=== PATIENT | female | born 1970 | race Caucasian/White ===

== ENCOUNTER → 2021-07-10 | Outpatient (CLI) | payer OTHER ==
--- NOTE | 2021-07-10 13:07 | US ---
EXAMINATION TYPE: US thyroid st tissue head/neck DATE OF EXAM: 07/10/2021 COMPARISON: NONE CLINICAL HISTORY: R22.1 Soft tissue mass. Patient has two submandibular palpable areas on left. 1.) 0.9 x 0.4 x 0.7cm 2.) 0.7 x 0.4 x 0.7cm IMPRESSION: 1. Small hypoechoic areas at the palpable region in the submental space. Findings may be small lymph nodes. These are not enlarged by measurement criteria. Consider clinical management. 2. If additional evaluation would be of benefit, CT neck with contrast could be performed for additio nal evaluation.
== END | disposition home or self-care (01) ==
LOC: RADUSWWP 11:56
PROVIDERS: ATTEND Family Medicine
DX: R22.1 Localized swelling, mass and lump, neck (principal)
CPT/HCPCS: 76536

== ENCOUNTER → 2021-07-24 | Outpatient (CLI) | payer SELFPAY ==
--- NOTE | 2021-07-24 12:39 | CT ---
EXAMINATION TYPE: CT soft tissue neck w con DATE OF EXAM: 07/24/2021 12:23 PM COMPARISON: Ultrasound 07/10/2021 HISTORY: pain and swelling to left side of neck CT DLP: 344.9 mGycm Automated exposure control for dose reduction was used. CONTRAST: CT scan of the neck is performed following with IV Contrast, patient injected with 80cc mL of Isovue 300. Axial images are obtained, coronal and sagittal reformatted images are reviewed. FINDINGS: Subcentimeter left-sided thyroid nodule noted too small to characterize. Submandibular glan ds are symmetric in size and appearance. Parotid glands have a normal appearance. Oropharynx and nasopharynx symmetric. Orbits symmetric. Base of the tongue symmetric. Vocal cords hav e a normal appearance. Lung apices are clear. Osseous structures are intact. Mild atherosclerotic change of the carotid bifu rcation. Shotty lymphadenopathy seen throughout the subcutaneous tissue compartments of the neck and no defini te pathologic lymphadenopathy. IMPRESSION: 1. No definite mass or pathologic adenopathy.
== END | disposition home or self-care (01) ==
LOC: RADCTMAIN 11:22
PROVIDERS: ATTEND Family Medicine
DX: R22.1 Localized swelling, mass and lump, neck (principal)
CPT/HCPCS: 82565; 84520; 70491; 36415; Q9967

== ENCOUNTER → 2022-01-03 | Outpatient (CLI) | payer OTHER ==
--- NOTE | 2022-01-07 07:48 | MM ---
Reason for Exam: Screening (asymptomatic). Last mammogram was performed 1 year(s) and 4 month(s) ago. Patient History: Menarche at age 9. Patient has no children. Hysterectomy at age 45. Postmenopausal. Maternal aunt had breast cancer. Paternal aunt had endometrial cancer. Risk Values: Siobhan 5 year model risk: 1.2%. NCI Lifetime model risk: 10.6%. Prior Study Comparison: 08/24/2020 Bilateral MG 3D screening mammo w/cad, [facility] – [place]. Tissue Density: There are scattered fibroglandular densities. Findings: Analyzed By CAD. There is no suspicious group of microcalcifications or new suspicious mass in either breast. No significant change from prior examination. Overall Assessment: Benign, BI-RAD 2 Management: Screening Mammogram of both breasts in 1 year. A clinical breast exam by your physician is recommended on an annual basis and results should be correlated with mammographic findings. Electronically signed and approved by: Philip Kim D.O.
== END | disposition home or self-care (01) ==
LOC: RADMAMWWP 16:36
PROVIDERS: ATTEND Family Medicine
DX: Z12.31 Encounter for screening mammogram for malignant neoplasm of breast (principal); Z78.0 Asymptomatic menopausal state; Z80.3 Family history of malignant neoplasm of breast
CPT/HCPCS: 77063; 77067

== ENCOUNTER → 2023-02-19 | Outpatient (CLI) | payer OTHER ==
--- NOTE | 2023-02-20 11:32 | MM ---
Reason for Exam: Screening (asymptomatic). Last mammogram was performed 1 year(s) and 1 month(s) ago. Patient History: Menarche at age 9. Patient has no children. Hysterectomy at age 45. Postmenopausal. Maternal aunt had breast cancer. Paternal aunt had endometrial cancer. Risk Values: Siobhan 5 year model risk: 1.3%. NCI Lifetime model risk: 10.5%. Prior Study Comparison: 08/24/2020 Bilateral MG 3D screening mammo w/cad, [facility]. 01/03/2022 Bilateral MG 3D screening mammo w/cad, [facility]. Tissue Density: The breast tissue is heterogeneously dense. This may lower the sensitivity of mammography. Findings: Analyzed By CAD. There is no suspicious group of microcalcifications or new suspicious mass in either breast. Overall Assessment: Negative, BI-RAD 1 Management: Screening Mammogram of both breasts in 1 year. . Patient should continue monthly self-breast exams. A clinical breast exam by your physician is recommended on an annual basis. This exam should not preclude additional follow-up of suspicious palpable abnormalities. Note on Siobhan scores and lifetime risk: 1. A Siobhan score greater than 3% is considered moderate risk. If this is the case, consider specialist referral to assess eligibility for a risk reducing agent. 2. If overall lifetime risk for the development of breast cancer is 20% or higher, the patient may qualify for future screening with alternating mammogram and breast MRI. Electronically signed and approved by: Anurag Cordova M.D. Radiologis
== END | disposition home or self-care (01) ==
LOC: RADMAMWWP 16:19
PROVIDERS: ATTEND Family Medicine
DX: Z12.31 Encounter for screening mammogram for malignant neoplasm of breast (principal); Z78.0 Asymptomatic menopausal state; Z80.3 Family history of malignant neoplasm of breast
CPT/HCPCS: 77063; 77067

== ENCOUNTER → 2023-09-08 | Outpatient (CLI) | payer OTHER ==
[2023-09-08 15:18] LABS: Partial Thromboplastin Time 24.9 sec (22.0-30.0); Prothrombin Time 10.6 sec (10.0-12.5)
[2023-09-08 21:22] LABS: HCT 41.6 % (37.2-46.3); HGB 13.3 g/dL (12.0-15.0); MCH 28.5 pg (27.0-32.0); MCV 89.3 FL (80.0-97.0); Mean Platelet Volume 10.3 FL (9.5-12.2); NRBC Per 100 WBC 0 X 10*3/uL (0.00-0.01); Platelet Count 203 X 10*3/uL (140-440); RBC 4.66 X 10*6/uL (4.10-5.20); RDW 13.8 % (11.5-14.5); WBC 5.24 X 10*3/uL (4.50-10.00)
[2023-09-08 21:46] LABS: ALT 27 U/L (8-44); AST 35 U/L (13-35); Albumin/Globulin Ratio 1.67 Ratio (1.60-3.17); Alkaline Phosphatase 97 U/L (41-126); BUN/Creat Ratio 16.47 Ratio (12.00-20.00); Blood Urea Nitrogen 31.3 mg/dL (9.0-27.0); Calcium 9.1 mg/dL (8.7-10.3); Carbon Dioxide 18.9 mmol/L (21.6-31.8); Chloride 106 mmol/L (96-109); Globulin 2.4 g/dL (1.6-3.3); Glucose 96 mg/dL (70-110); Potassium 5.1 mmol/L (3.5-5.5); Sodium 138 mmol/L (135-145); Total Bilirubin 0.2 mg/dL (0.3-1.2); Total Protein 6.4 g/dL (6.2-8.2)
== END | disposition home or self-care (01) ==
LOC: LABPAT 13:47
PROVIDERS: ATTEND Orthopaedic Surgery
DX: Z01.812 Encounter for preprocedural laboratory examination (principal)
CPT/HCPCS: 36415; 80053; 85027; 85610; 85730; 87070

== ENCOUNTER 2023-09-22 05:56 | Day surgery (SDC) | payer OTHER ==
[~2023-09-22 05:56] MED LIST: MELOXICAM 7.5 MG TAB PO PRN; TRANEXAMIC 1,000 MG/100ML-NACL 1,000 MG in SALINE 1 100ML.BAG IVPB PRN
[2023-09-22] MEDS: GABAPENTIN 300 MG CAP PO PRN (06:37)
[2023-09-22] MEDS: ACETAMINOPHEN TAB 500 MG TAB PO PRN (06:38)
[2023-09-22] MEDS: IV FLUID CONTINUATION 1,000 ML IV ONE ×2 (06:54→07:03)
[2023-09-22] MEDS: ONDANSETRON 4 MG/2 ML VIAL IVP ONE (06:57)
[2023-09-22 07:00] LABS: Glucose,Whole Blood 103 mg/dL (70-110)
[2023-09-22] MEDS: MIDAZOLAM 2 MG/2 ML VIAL IVP ONE (07:02)
--- NOTE | 2023-09-22 08:35 | P.OP ---
Date of Procedure: 09/22/23 Preoperative Diagnosis: Severe osteoarthritis right knee Postoperative Diagnosis: Severe osteoarthritis right knee Procedure(s) Performed: Right total knee arthroplasty Implants: Epters & Nephew Journey II CR Oxinium cruciate retaining femoral component size 5, right Peters & Nephew Journey nonporous tibial baseplate size 3, right Peters & Nephew Journey II, XLPE Deep Dished articular insert, size 9 mm, Size 3- 4, right Peters & Nephew Journey Reva II resurfacing patellar component, oval, 29 mm All components were cemented using Palacos R bone cement The articulation is Oxinium on polyethylene Anesthesia: JAMMIE Surgeon: John Mcdonald Epic Manager #1: Jeanette Gooden Estimated Blood Loss (ml): 40 Pathology: none sent Condition: stable Disposition: PACU Indications for Procedure: The patient's knee is end-stage, and conservative management has failed. The operation of knee replacement has been discussed at length in the office, as well as potential risks and complications. These are inclusive of, but not l imited to: Infection, bleeding, scarring, discomfort, stiffness, blood vessel and nerve damage, need for further surgery, failure to relieve symptoms, persistence, recurrence, or worsening of problems, loosening, dislocation, wear, blood clot, pulmonary embolism, , gait dysfunction, stiffness, and other risks as discussed in the office. Patient elects to proceed and the consent form has been signed. Operative Findings: The operative findings are consistent with severe osteoarthritis of the right knee Description of Procedure: The patient was seen in the preoperative area, the consent was reviewed and the operative site was marked with a skin marker. The patient verified the procedure and the operative site. An adductor canal pain catheter and an iPACK block were placed by anesthesia in the preoperative area. The patient was then brought to the operating room and positioned on the operating room table in the supine position. Preoperative antibiotics and a gram of tranexamic acid were given intravenously. A general anesthetic was administered by the anesthesia department. Care was taken to make sure that all pressure points were adequately padded. A tourniquet was placed on the upper thigh and the lower extremity was prepped with ChloraPrep and draped in usual sterile fashion. A universal time-out was then performed which confirmed the patient's name, surgical site, ALLERGIES, and consent. The lower extremity was then exsanguinated and tourniquet was inflated to 250 mmHg. A standard anterior midline approach to the knee was performed. The skin and subcutaneous tissue were sharply dissected down to the patellar tendon. A medial parapatellar arthrotomy was then performed. The knee was then extended, the patellar was everted, and the knee was flexed. The infra-patellar fat pad was removed in order to enhance exposure. The anterior horns of both menisci were excised, and a release was performed to the posterior medial aspect of the knee. On gross visual inspection, there was complete loss of articular cartilage in the medial and patellofemoral joint spaces. There was also significant cartilage damage in the lateral compartment. There were multiple periarticular osteophytes globally about the knee which were then removed with a Ronguer. The femoral canal was then opened with the 9.5 mm intramedullary drill. The 8 mm intramedullary yina was then inserted into the femoral canal with the distal femoral cutting guide set for 5 of valgus. The distal femoral cutting block was then pinned in place. The intramedullary yina was then removed, and the distal femur was then cut. The cutting block was then removed and the cut was checked for symmetry. The resected bone was then measured to confirm the appropriate distal femoral resection. Next, the sizing guide was then placed and set for 3 external rotation based off of the epicondylar axis and Accomack's line. Pins were then placed and the drill holes, and the femur was sized with the sizing stylus. The pins were then removed, and the sizing guide was then removed. The spikes of the appropriate size femoral block was then placed into the predrilled holes, and malleted into place. Two 45 mm pins were then placed into the fixation holes on the cutting block. An warren wing was then used to ensure there would be no notching with the anterior cut. The anterior condyles were cut without notching. The anterior chord cut was then performed, followed by the posterior cut, posterior chamfer cut, and the anterior chamfer cut. The collateral ligaments were protected during the entire process. The cutting block was then removed. Any remaining bone and osteophytes were removed from the femur with a Ronguer. Attention was then directed to the tibia. The remaining ACL was removed with a Ronguer, and the tibia was then gently subluxed forward with a large bent knee retractor. Any remaining menisci were excised. The posterior lateral corner was cauterized in order to coagulate the lateral geniculate artery. The extra medullary tibial cutting guide was then placed, set for the appropriate rotation, slope, and depth of resection. The proximal tibia cutting guide was then pinned in place. Proximal tibia was then cut and sized. A curved osteotome was then used to remove any posterior osteophytes from the distal femur. The femoral trial was placed. A narrow saw blade was then used to remove the anterior intracondylar femoral bone. The CR notch trial was then placed. The tibial trial was placed with the appropriate-sized insert. The knee was able to fully extend and flex to 130 and was stable throughout all range of motion. The knee was then extended and the patella was everted. Patella was then measured, and then using an osteotomy guide, the patella was cut at the appropriate level. The patellar component was sized. The patellar drill guide was placed and the patella was drilled. The patella trial was then placed. The knee was then taken through range of motion with the patella trial and the patella tracked normally using the no thumbs technique. The patella trial was then removed. The knee was then flexed and lug holes were drilled through the femoral trial and the femoral trial was then removed. The tibial was then re- exposed, and the tibial broach guide was then pinned in place after it was set for the appropriate rotation to allow for the most coverage without overhang. The tibia was then reamed and broached. The femoral canal was plugged with autologous bone. The cut surfaces of bone were then irrigated with pulsatile lavage. The knee was also irrigated with Irrisept solution. The components were then opened, the cement was mixed. Cement was placed on the backside of the femoral, tibial, and patellar components. Cement was then applied to the tibial surface and pressurized into the surface using finger pressurization technique. The tibial component was then applied and excess cement was removed after it was impacted securely noted to be flush with the cut surface. In similar fashion, the cement was applied to the cut femoral surface, p ressurized and using finger pressurization the component was impacted in place. Excess cement was removed. The polyethylene spacer was then implanted and locked into position. Patellar component was then applied in a similar technique and the patellar clamp was used to hold patella in place while the cement hardened. The knee was held in full extension while the cement hardened. Once the cement had fully hardened, the knee was reinspected. Any other cement extrusion was removed the final range of motion testing showed range of motion from 0-130 with excellent stability, both medial and laterally and appropriate alignment of the leg. Patella tracked normally. After the cemented hardened, the tourniquet was released and hemostasis was obtained. A second gram of transexamic acid was given intravenously. The knee was again irrigated. The knee was again taken through range of motion and found to be stable throughout all range of motion of 0-130, and the patella tracked normally. The fascia was then closed with 0 Vicryl followed by #2 strata fix suture. The subcutaneous tissue was closed with 3-0 Vicryl and 3-0 strata fix. Exofin glue was used for the skin and placed with the knee in flexion. After the glue had dried, and Optafoam silver impregnated dressing was applied. A lightly compressive dressing was applied using web roll and Pro wrap. Patient was then transferred to the stretcher and taken to recovery room in stable condition. Sponge and needle counts were correct. The medical receptionist assistant DAVID Bauer was required due the complexity surgery and the need for a skilled surgical elastic knitter hand frame. She assisted in positioning, draping, retraction, and closure of the wound.
[2023-09-22] MEDS: LACTATED RINGERS 1,000 ML IV ONE (08:50)
[2023-09-22] MEDS: ROPIVACAINE 1,100 MG, SODIUM CHLORIDE 0.9% 500 ML 330 ML, EMPTY PAIN BALL 1 EACH MISCELLANE PRN (09:25)
[2023-09-22] MEDS ORDERED: NALOXONE 0.4 MG/ML 1 ML VIAL IV PRN (09:49)
[2023-09-22] MEDS ORDERED: MAGNESIUM HYDROXIDE 2,400 MG/30 ML CUP PO PRN (09:49)
[2023-09-22] MEDS ORDERED: NA PHOS,M-B/NA PHOS,DI-BA 133 ML ENEMA RECTAL PRN (09:49)
[2023-09-22] MEDS ORDERED: bisacodyL 10 MG SUPP RECTAL PRN (09:49)
[2023-09-22] MEDS ORDERED: ONDANSETRON 4 MG/2 ML VIAL IVP PRN (09:49)
[2023-09-22] MEDS ORDERED: HYDROmorphone 0.5 MG/0.5 ML SYRINGE IVP PRN ×2 (09:49)
[2023-09-22] MEDS ORDERED: HYDROcodone/APAP 7.5-325MG 1 EACH TAB PO PRN (09:52)
[2023-09-22 10:00] LABS: Glucose,Whole Blood 151 mg/dL (70-110)
--- NOTE | 2023-09-22 10:06 | XR ---
EXAMINATION TYPE: XR knee 2 views RT DATE OF EXAM: 09/22/2023 Comparison: None Clinical History: 53-year-old female POST TOTAL KNEE ARTHROPLASTY Findings: Images show placement of right total knee arthroplasty. Both distal femoral and proximal tibial compo nents of the prosthesis are well seated without periprosthetic fracture. Alignment grossly anatomic. Anterior soft tissue swelling with soft tissue air as well as intra-articular air related to recent o peration. Vascular calcifications noted in the mid to distal thigh. Impression: Uncomplicated postoperative appearance right total knee arthroplasty.
[2023-09-22] MEDS: HYDROmorphone 0.5 MG/0.5 ML SYRINGE IVP PRN (10:23)
[2023-09-22] MEDS: droPERidol 5 MG/2 ML VIAL IVP ONE (15:26)
[2023-09-22] MEDS: LACTATED RINGERS 1,000 ML IV SCH (15:26)
[2023-09-22] MEDS: SODIUM CHLORIDE 0.9% 1,000 ML IV SCH (16:02)
[2023-09-22 16:43] LABS: Glucose,Whole Blood 229 mg/dL (70-110)
[2023-09-22] MEDS ORDERED: LORazepam 0.5 MG TAB PO PRN (17:15)
[2023-09-22] MEDS ORDERED: DEXTROSE 50% SYRINGE 50 ML IVP PRN ×2 (17:16)
--- NOTE | 2023-09-22 17:19 | P.CONS ---
History of Present Illness - Reason for Consult Consult date: 09/22/23 - History of Present Illness 53 year old F with PMH of CAD with stent, h/o gastric bypass, h/o bleeding gastric ulcer, anxiety presents to [facility] for elective surgery. She underwent right total knee arthroplasty with Dr. Mcdonald. [facility] [place] Physicians consulted for medical management of this patient. She reports 4/10 pain in her R knee. Ambulating since surgery. Able to urinate. No bowel movement. Not passing gas. No other complaints. Vital signs BP 135/80, HR 74, T 98.5F, RR 18, 100% on RA. POC glucose 103-229 since admission. Knee XR shows post operative changes right total knee arthroplasty. General: no distress, appears at stated age Derm: warm, dry Head: atraumatic, normocephalic, symmetric Eyes: EOMI, no lid lag, anicteric sclera Mouth: no lip lesion, mucus membranes moist Cardiovascular: S1S2 reg, no murmur Lungs: CTA BS bilateral, no rhonchi, no rales , no accessory muscle use Ext: no gross muscle atrophy, no edema, no contractures Neuro: no focal neuro deficits Psych: Alert and oriented x 3 POD 0 R total knee arthroplasty managed by Orthopedic surgery. CAD with stent: ASA 81 mg PO BID. Plavix 75 mg PO QD. Metoprolol 25 mg PO QD. h/o bleeding gastric ulcer: Protonix 40 mg PO QD. Diabetes mellitus: ISS. Accuchecks ACHS. Hypoglycemic precautions. Anxiety: Sertraline 150 mg PO QHS. Ativan 0.5 mg PO BID PRN. h/o gastric bypass CODE STATUS: FULL CODE DVT Prophylaxis: ASA BID GI Prophylaxis: Designated medical POA if patient is not able to make medical decisions for themselves: I have reviewed the following testing consultant notes: Surgical note. I have reviewed the results of the following tests: As above. I have ordered the following tests: As above. I have discussed the care of this patient with the following independent historian: Family members. I have independently interpreted the following test below: I have discussed the management of this patient with the following physician: Past Medical History Past Medical History: Coronary Artery Disease (CAD), Diabetes Mellitus, GERD/Reflux, GI Bleed, Osteoarthritis (OA) Additional Past Medical History / Comment(s): BLEEDING ULCERS,KIDNEY STONES History of Any Multi-Drug Resistant Organisms: None Reported Past Surgical History: Bariatric Surgery, Cholecystectomy, Heart Catheterization, Heart Catheterization With Stent, Hysterectomy, Orthopedic Surgery, Tonsillectomy Additional Past Surgical History / Comment(s): CARDIAC STENT,KNEE SURGERY,BYPASS GASTRIC Past Anesthesia/Blood Transfusion Reactions: No Reported Reaction Additional Past Anesthesia/Blood Transfusion Reaction / Comm: no hx. of blood transfusion reaction Date of Last Stent Placement:: 01/11 Past Psychological History: Anxiety, Depression Smoking Status: Never smoker Past Alcohol Use History: None Reported Past Drug Use History: Marijuana Additional Drug Use History / Comment(s): THC gummies very rarely - Past Family History Mother Family Medical History: No Reported History Medications and Allergies Home Medications Medication Instructions Recorded Confirmed Type Aspirin [Adult Low Dose Aspirin EC] 81 mg PO DAILY 05/03/21 09/22/23 History Clopidogrel [Plavix] 75 mg PO DAILY 05/03/21 09/18/23 History LORazepam 0.5 mg PO BID PRN 05/03/21 09/18/23 History Metoprolol Succinate [Toprol XL] 25 mg PO DAILY 05/03/21 09/18/23 History Nitroglycerin Sl Tabs [Nitrostat] 0.4 mg SUBLINGUAL ONCE PRN 05/03/21 09/18/23 History Ondansetron [Zofran] 4 mg PO Q8HR PRN 05/03/21 09/22/23 History Sertraline HCl 150 mg PO HS 05/03/21 09/18/23 History Cholestyramine (with Sugar) 4 gm PO BID PRN 09/18/23 09/22/23 History [Questran] Cyclobenzaprine [Flexeril] 5 mg PO Q8H PRN 09/18/23 09/22/23 History Dulaglutide [Trulicity] 3 mg SQ SA 09/18/23 09/18/23 History Ipratropium Hope [Ipratropium 1 spray NASAL DAILY 09/18/23 09/22/23 History Hope 0.03%] Loratadine [Claritin] 10 mg PO DAILY 09/18/23 09/22/23 History Multivitamins, Thera [Multivitamin 1 tab PO DAILY 09/18/23 09/22/23 History (formulary)] Pantoprazole [Protonix] 40 mg PO DAILY 09/18/23 09/22/23 History traMADol HCL 50 mg PO Q6H PRN 09/18/23 09/18/23 History Aspirin [Adult Low Dose Aspirin EC] 81 mg PO BID 30 Days #60 tab 09/22/23 Rx HYDROcodone/APAP 7.5-325MG [[place] 1 - 2 tab PO Q6H PRN #32 tab 09/22/23 Rx 7.5-325] Sennosides [Senokot] 2 tab PO DAILY PRN #60 tablet 09/22/23 Rx Allergies Allergy/AdvReac Type Severity Reaction Status Date / Time cefaclor [From Ceclor] Allergy Rash/Hives Verified 09/22/23 06:18 pioglitazone [From Actos] Allergy Rash/Hives Verified 09/22/23 06:18 rosiglitazone [From Avandia] Allergy Rash/Hives Verified 09/22/23 06:18 tirzepatide [From Mounjaro] Allergy Rash/Hives Verified 09/22/23 06:18 Physical Exam Vitals: Vital Signs Temp Pulse Resp BP Pulse Ox 09/22/23 15:33 98.5 F 74 18 135/80 100 09/22/23 14:45 70 16 153/75 96 09/22/23 14:15 68 18 131/82 98 09/22/23 13:45 68 17 135/82 100 09/22/23 13:15 68 17 169/74 100 09/22/23 12:45 83 16 135/77 100 09/22/23 12:15 65 16 113/58 98 09/22/23 11:45 65 16 111/58 98 09/22/23 11:15 63 15 117/59 98 09/22/23 10:45 62 17 125/68 100 09/22/23 10:15 75 15 124/66 97 09/22/23 09:47 66 16 121/67 98 09/22/23 09:32 67 14 130/67 99 09/22/23 09:17 67 15 137/64 97 09/22/23 09:02 96.8 F L 79 14 176/70 100 09/22/23 06:23 97.2 F L 78 18 114/74 100 Intake and Output 09/22/23 09/22/23 09/22/23 06:59 14:59 22:59 Intake Total 300 1450 Output Total 640 Balance 300 810 Intake: IV 300 1450 Output: Urine 600 Estimated Blood Loss 40 Other: # Voids 1 Weight 87.9 kg 87.9 kg Results Labs: Abnormal Lab Results - Last 24 Hours (Table) 09/22/23 09/22/23 Range/Units 09:59 16:41 POC Glucose (mg/dL) 151 H 229 H (70-110) mg/dL
[2023-09-22] MEDS: INSULIN ASPART (NovoLOG) 100 UNIT/ML VIAL SQ SCH (17:33)
[2023-09-22 21:06] LABS: Glucose,Whole Blood 210 mg/dL (70-110)
[2023-09-22] MEDS: ASPIRIN 81 MG PO SCH (21:21)
[2023-09-22] MEDS: SENNOSIDES-DOCUSATE SODIUM 1 EACH TAB PO SCH (21:21)
[2023-09-22] MEDS: SERTRALINE 100 MG TAB PO SCH (21:21)
[2023-09-22] MEDS: HYDROmorphone 1 MG/ML 1 ML SYRINGE IVP PRN (21:22)
[2023-09-23 06:27] LABS: Glucose,Whole Blood 112 mg/dL (70-110)
[2023-09-23] MEDS: PANTOPRAZOLE 40 MG TABLET PO SCH (07:41)
[2023-09-23] MEDS: CLOPIDOGREL 75 MG TAB PO SCH ×2 (07:41→08:07)
[2023-09-23] MEDS: HYDROcodone/APAP 7.5-325MG 1 EACH TAB PO PRN (07:41)
[2023-09-23] MEDS: METOPROLOL SUCCINATE (ER) 25 MG TAB.ER.24H PO SCH (07:41)
[2023-09-23] MEDS: LORATADINE 10 MG TAB PO SCH (07:41)
[2023-09-23 08:37] LABS: Basophils # (A) 0.03 X 10*3/uL (0.00-0.10); Basophils % (A) 0.3 %; Eosinophils # (A) 0.03 X 10*3/uL (0.04-0.35); Eosinophils % (A) 0.3 %; HGB 10.6 g/dL (12.0-15.0); Lymphocytes # (A) 1.23 X 10*3/uL (0.90-5.00); Lymphocytes % (A) 12.6 %; MCHC 32.1 g/dL (32.0-37.0); MCV 87.3 FL (80.0-97.0); Monocytes # (A) 1.26 X 10*3/uL (0.20-1.00); Monocytes % (A) 12.9 %; NRBC Per 100 WBC 0 X 10*3/uL (0.00-0.01); Neutrophils # (A) 7.18 X 10*3/uL (1.80-7.70); Neutrophils % (A) 73.6 %; Platelet Count 175 X 10*3/uL (140-440); RBC 3.78 X 10*6/uL (4.10-5.20); RDW 13.2 % (11.5-14.5); WBC 9.76 X 10*3/uL (4.50-10.00)
--- NOTE | 2023-09-23 08:49 | P.DS ---
Providers Expected date of discharge: 09/23/23 Attending physician: John Mcdonald Consults: 09/22/23 09:49 Consult Physician Routine Consulting Provider: Gary Solis Consult Reason/Comments: medical management Do you want consulting provider notified?: Yes Primary care physician: RODNEY Banegas Hospital Course: This is a 53-year-old female with known history of degenerative arthritis of the right knee. The patient presented for evaluation as an outpatient. After discussion and consideration patient elects to proceed with total knee arthroplasty. The patient is seen preoperatively by Dr. Mcdonald and medically cleared for surgery by their primary care physician. Patient is admitted to [facility] on 09/22/2023 for total knee arthroplasty. The procedure is performed without complication or sequelae. The patient is doing well postoperatively. Labs and vital signs are stable on day of discharge. On day of discharge patient's knee incision is healing well. There is minimal erythema. There is no drainage noted at this time. There is minimal soft tissue swelling to the knee. Patient has full foot and ankle motion without difficulty or pain. Calf is soft and nontender to palpation. Neurovascular status to the right lower extremity is intact. Patient is discharged home in good condition. Please see med rec for accurate list of home medications. Plan - Discharge Summary Discharge Rx Participant: Yes New Discharge Prescriptions: New Sennosides [Senokot] 2 tab PO DAILY PRN #60 tablet PRN Reason: Constipation Aspirin [Adult Low Dose Aspirin EC] 81 mg PO BID 30 Days #60 tab HYDROcodone/APAP 7.5-325MG [[place] 7.5-325] 1 - 2 tab PO Q6H PRN #32 tab PRN Reason: Pain No Action Ondansetron [Zofran] 4 mg PO Q8HR PRN PRN Reason: Nausea Metoprolol Succinate [Toprol XL] 25 mg PO DAILY LORazepam 0.5 mg PO BID PRN PRN Reason: Anxiety Clopidogrel [Plavix] 75 mg PO DAILY Aspirin [Adult Low Dose Aspirin EC] 81 mg PO DAILY Cyclobenzaprine [Flexeril] 5 mg PO Q8H PRN PRN Reason: Muscle Spasm Cholestyramine (with Sugar) [Questran] 4 gm PO BID PRN PRN Reason: digestion Ipratropium [place] [Ipratropium [place] 0.03%] 1 spray NASAL DAILY Dulaglutide [Trulicity] 3 mg SQ SA Sertraline HCl 150 mg PO HS Nitroglycerin Sl Tabs [Nitrostat] 0.4 mg SUBLINGUAL ONCE PRN PRN Reason: Chest Pain Pantoprazole [Protonix] 40 mg PO DAILY Loratadine [Claritin] 10 mg PO DAILY traMADol HCL 50 mg PO Q6H PRN PRN Reason: Pain Multivitamins, Thera [Multivitamin (formulary)] 1 tab PO DAILY Discharge Medication List Aspirin [Adult Low Dose Aspirin EC] 81 mg PO DAILY 05/03/21 [History] Clopidogrel [Plavix] 75 mg PO DAILY 05/03/21 [History] LORazepam 0.5 mg PO BID PRN 05/03/21 [History] Metoprolol Succinate [Toprol XL] 25 mg PO DAILY 05/03/21 [History] Nitroglycerin Sl Tabs [Nitrostat] 0.4 mg SUBLINGUAL ONCE PRN 05/03/21 [History] Ondansetron [Zofran] 4 mg PO Q8HR PRN 05/03/21 [History] Sertraline HCl 150 mg PO HS 05/03/21 [History] Cholestyramine (with Sugar) [Questran] 4 gm PO BID PRN 09/18/23 [History] Cyclobenzaprine [Flexeril] 5 mg PO Q8H PRN 09/18/23 [History] Dulaglutide [Trulicity] 3 mg SQ SA 09/18/23 [History] Ipratropium [place] [Ipratropium [place] 0.03%] 1 spray NASAL DAILY 09/18/23 [History] Loratadine [Claritin] 10 mg PO DAILY 09/18/23 [History] Multivitamins, Thera [Multivitamin (formulary)] 1 tab PO DAILY 09/18/23 [History] Pantoprazole [Protonix] 40 mg PO DAILY 09/18/23 [History] traMADol HCL 50 mg PO Q6H PRN 09/18/23 [History] Aspirin [Adult Low Dose Aspirin EC] 81 mg PO BID 30 Days #60 tab 09/22/23 [Rx] HYDROcodone/APAP 7.5-325MG [[place] 7.5-325] 1 - 2 tab PO Q6H PRN #32 tab 09/22/23 [Rx] Sennosides [Senokot] 2 tab PO DAILY PRN #60 tablet 09/22/23 [Rx] Follow up Appointment(s)/Referral(s): [facility] [NON-STAFF] - As Needed (*Please call [facility] to arrange delivery of the Continuous Passive Motion (CPM) machine. ) [facility], [NON-STAFF] - 1-2 Days ([facility] will call you to schedule your in home physical therapy visits. ) John Mcdonald DO [Doctor of Osteopathic Medicine] - 2 Weeks Activity/Diet/Wound Care/Special Instructions: Weightbearing as tolerated with a walker. CPM 5-6h daily as tolerated. Leave dressing intact. Dressing may be removed by home care nurse or by patient in 7 days. Then change dressing twice daily until follow up. May shower with initial dressing intact and after removal. If dressing become saturated, please remove. Recommend use of compression stockings daily until follow up to help prevent s welling and blood clots. May remove at night before sleeping. Please resume Plavix and take aspirin 81 mg twice daily for the next 30 days to help prevent blood clots. Please follow up with [facility] and call with any questions or concerns, . Discharge Disposition: HOME WITH HOME HEALTH SERVICES
--- NOTE | 2023-09-23 10:13 | P.PN ---
Subjective Progress Note Date: 09/23/23 Feels okay today, no chest pain no abdominal pain, knee pain has improved. No nausea or vomiting. Objective - Vital Signs Vital signs: Vital Signs Temp 98.6 F 09/23/23 07:05 Pulse 69 09/23/23 07:05 Resp 18 09/23/23 07:05 BP 135/76 09/23/23 07:05 Pulse Ox 96 09/23/23 07:05 FiO2 Intake & Output 09/22/23 09/23/23 09/23/23 18:59 06:59 18:59 Intake Total 1450 Output Total 640 Balance 810 Weight 87.9 kg Intake: IV 1450 Output: Urine 600 Estimated Blood Loss 40 Other: Voiding Method Toilet # Voids 1 1 - Exam Constitutional: No acute distress, conversant, pleasant Eyes: Anicteric sclerae, moist conjunctiva, no lid-lag, PERRLA ENMT: NC/AT,Oropharynx clear, no erythema, exudates Neck:Supple, FROM, no masses, or JVD, No carotid bruits; No thyromegaly Lungs: Clear to auscultation, Clear to percussion, Normal respiratory effort, no accessory muscle use Cardiovascular: Heart regular in rate and rhythm, No murmurs, gallops, or rubs no peripheral edema Abdominal: Soft Nontender, nom distended, no guarding, no rebound or rigidity, Normoactive bowel sounds No hepatomegaly, No splenomegaly, No palpable mass No abdominal wall hernia noted Skin: Normal temperature, tone, texture, turgor, No induration No subcutaneous nodules, No rash, lesions, No ulcers Extremities:No digital cyanosis No clubbing, Pedal pulses intact and symmetrical Radial pulses intact and symmetrical Normal gait and station, No calf tenderness Psychiatric: Alert and oriented to person, place and time, Appropriate affect Intact judgement Neuro: Muscles Strength 5/5 in all 4 extremities, Sensation to light touch grossly present throughout, Cranial nerves II-XII grossly intact. No focal sensory deficits - Labs CBC & Chem 7: 09/23/23 05:18 Labs: Abnormal Lab Results - Last 24 Hours (Table) 09/22/23 09/22/23 09/22/23 Range/Units 09:59 16:41 21:04 POC Glucose (mg/dL) 151 H 229 H 210 H (70-110) mg/dL 09/23/23 Range/Units 06:26 POC Glucose (mg/dL) 112 H (70-110) mg/dL Assessment and Plan Plan: CAD with stent: ASA 81 mg PO BID. Plavix 75 mg PO QD. Metoprolol 25 mg PO QD. h/o bleeding gastric ulcer: Protonix 40 mg PO QD. Diabetes mellitus: ISS. Accuchecks ACHS. Hypoglycemic precautions. Anxiety: Sertraline 150 mg PO QHS. Ativan 0.5 mg PO BID PRN. h/o gastric bypass Dispo: home today
--- NOTE | 2023-09-23 10:23 | P.ANPRN ---
Procedure Note - Anesthesia - Nerve Block Performed Right Adductor Canal Infusion Time Out Performed: Yes Date of Procedure: 09/22/23 Procedure Start Time: Procedure Stop Time: Location of Patient: PreOp Indication: Acute Post-Operative Pain, Requested by Surgeon Sedation Type: Sedate with meaningful contact maintained Preparation: Sterile Prep, Sterile Dressing Position: Supine Catheter: Indwelling Needle Types: Pajunk Needle Gauge: 21 Ultrasound used to visualize needle placement: Yes Ultrasound used to observe medication spread: Yes Blood Aspirated: No Pain Paresthesia on Injection Noted: No Resistance on Injection: Normal Image Stored and Saved: Yes Events: Uneventful and Well Tolerated (Begin 0.5% 20 cc plus dexamethasone 4 mg)
--- NOTE | 2023-09-23 10:25 | P.ANPRN ---
Procedure Note - Anesthesia - Nerve Block Performed Right [place] Single Time Out Performed: Yes Date of Procedure: 09/22/23 Procedure Start Time: 07:09 Procedure Stop Time: 07:14 Location of Patient: PreOp Indication: Acute Post-Operative Pain, Requested by Surgeon Sedation Type: Sedate with meaningful contact maintained Preparation: Sterile Prep Position: Supine Needle Types: Pajunk Needle Gauge: 21 Ultrasound used to visualize needle placement: Yes Ultrasound used to observe medication spread: Yes Blood Aspirated: No Pain Paresthesia on Injection Noted: No Resistance on Injection: Normal Image Stored and Saved: Yes Events: Uneventful and Well Tolerated (Ropivacaine 0.5% 25 cc plus dexamethasone 4 mg)
--- NOTE | 2023-09-23 10:26 | P.PN ---
Progress Note - Text 09/23/23 621am 3-year-old female status post total knee replacement. Patient has an On-Q pump for postop pain control with a solution running at 8 cc an hour with a VAS of 5, pain is predominantly located on heart hide secondary to tourniquet. Dressing clean dry and intact plan to continue On-Q pump infusion
[2023-09-23 11:12] LABS: Glucose,Whole Blood 202 mg/dL (70-110)
[2023-09-23 12:09] VITALS: BP 156/83; PULSE 65; RESP 16; TEMP 98.8
== END 2023-09-23 13:00 | disposition home health service (06) ==
LOC: OR 05:56 → 4SSUR 08:57 → OR 09-23 13:00
PROVIDERS: ATTEND Orthopaedic Surgery
DX: M17.0 Bilateral primary osteoarthritis of knee (principal); G89.18 Other acute postprocedural pain; M21.161 Varus deformity, not elsewhere classified, right knee; E11.22 Type 2 diabetes mellitus with diabetic chronic kidney disease; N18.9 Chronic kidney disease, unspecified; I25.10 Atherosclerotic heart disease of native coronary artery without angina pectoris; Z95.5 Presence of coronary angioplasty implant and graft; M79.7 Fibromyalgia; D89.89 Other specified disorders involving the immune mechanism, not elsewhere classified; F41.9 Anxiety disorder, unspecified; Z88.1 Allergy status to other antibiotic agents; Z88.8 Allergy status to other drugs, medicaments and biological substances; Z91.048 Other nonmedicinal substance allergy status; Z79.85 Long-term (current) use of injectable non-insulin antidiabetic drugs; Z79.899 Other long term (current) drug therapy; Z79.82 Long term (current) use of aspirin; Z79.02 Long term (current) use of antithrombotics/antiplatelets
CPT/HCPCS: 97161; 64999; 64448; 85025; 73560; 27447; C1713; C1776; C1751; J2250; J0690 ×2; J2405; J1170 ×3; J2795

== ENCOUNTER → 2024-01-14 | Outpatient (CLI) | payer OTHER ==
[2024-01-15 02:39] LABS: Basophils # (A) 0.06 X 10*3/uL (0.00-0.10); Eosinophils # (A) 0.27 X 10*3/uL (0.04-0.35); Eosinophils % (A) 4.3 %; HCT 39.3 % (37.2-46.3); HGB 12.3 g/dL (12.0-15.0); Lymphocytes # (A) 1.04 X 10*3/uL (0.90-5.00); Lymphocytes % (A) 16.7 %; MCH 26.8 pg (27.0-32.0); MCHC 31.3 g/dL (32.0-37.0); MCV 85.6 FL (80.0-97.0); Mean Platelet Volume 10.2 FL (9.5-12.2); Monocytes # (A) 0.62 X 10*3/uL (0.20-1.00); NRBC Per 100 WBC 0 X 10*3/uL (0.00-0.01); Neutrophils % (A) 67.7 %; Platelet Count 209 X 10*3/uL (140-440); RBC 4.59 X 10*6/uL (4.10-5.20); RDW 14.9 % (11.5-14.5); WBC 6.21 X 10*3/uL (4.50-10.00)
[2024-01-15 03:42] LABS: % Iron Saturation 10.26 (12.00-45.00); ALT 18 U/L (8-44); AST 22 U/L (13-35); Albumin/Globulin Ratio 1.54 Ratio (1.60-3.17); Alkaline Phosphatase 110 U/L (41-126); Blood Urea Nitrogen 30.6 mg/dL (9.0-27.0); Calcium 8.8 mg/dL (8.7-10.3); Chloride 107 mmol/L (96-109); Globulin 2.6 g/dL (1.6-3.3); Glucose 157 mg/dL (70-110); Iron 36 UG/DL (50-170); Potassium 4.2 mmol/L (3.5-5.5); Sodium 138 mmol/L (135-145); Total Bilirubin <0.2 mg/dL (0.3-1.2); Total Iron Binding Capacity 351 UG/DL (228-460); Total Protein 6.6 g/dL (6.2-8.2)
[2024-01-15 04:08] LABS: INR 0.97 sec (0.93-1.11); Prothrombin Time 10.5 sec (9.9-11.9)
== END | disposition home or self-care (01) ==
LOC: LABWHC1 16:19
PROVIDERS: ATTEND Nurse Practitioner Family
DX: Z01.818 Encounter for other preprocedural examination (principal); Z22.322 Carrier or suspected carrier of Methicillin resistant Staphylococcus aureus; I25.10 Atherosclerotic heart disease of native coronary artery without angina pectoris; E11.9 Type 2 diabetes mellitus without complications; D50.9 Iron deficiency anemia, unspecified; N18.31 Chronic kidney disease, stage 3a; N73.9 Female pelvic inflammatory disease, unspecified
CPT/HCPCS: 36415; 80053; 82306; 82607; 82728; 82746; 83036; 83540; 83550; 85025; 85610; 85730; 87070

== ENCOUNTER → 2024-01-16 | Outpatient (CLI) | payer OTHER | END | disposition home or self-care (01) | LOC: LABPAT 16:11 | PROVIDERS: ATTEND Orthopaedic Surgery | DX: Z01.812 Encounter for preprocedural laboratory examination (principal) | CPT/HCPCS: 85730 ==

== ENCOUNTER 2024-01-26 07:29 | Day surgery (SDC) | payer OTHER ==
[~2024-01-26 07:29] MED LIST changes: -MELOXICAM 7.5 MG TAB PO PRN
[2024-01-26 08:14] LABS: Glucose,Whole Blood 97 mg/dL (70-110)
[2024-01-26] MEDS: DEXAMETHASONE SOD PHOSPHATE 4 MG/ML 1 ML VIAL IV ONE (08:20)
[2024-01-26] MEDS: ONDANSETRON 4 MG/2 ML VIAL IVP ONE (08:20)
[2024-01-26] MEDS: LACTATED RINGERS 1,000 ML IV SCH (08:21)
[2024-01-26] MEDS: MELOXICAM 7.5 MG TAB PO PRN (08:21)
[2024-01-26] MEDS: GABAPENTIN 300 MG CAP PO PRN (08:21)
[2024-01-26] MEDS: ACETAMINOPHEN TAB 500 MG TAB PO PRN (08:21)
[2024-01-26] MEDS: IV FLUID CONTINUATION 1,000 ML IV ONE (08:30)
[2024-01-26] MEDS: MIDAZOLAM 2 MG/2 ML VIAL IV ONE (08:37)
[2024-01-26] MEDS ORDERED: NALOXONE 0.4 MG/ML 1 ML VIAL IV PRN (08:55)
[2024-01-26] MEDS ORDERED: HYDROmorphone 2 MG/ML 1 ML SYRINGE IVP PRN (08:55)
[2024-01-26] MEDS ORDERED: MAGNESIUM HYDROXIDE 2,400 MG/30 ML CUP PO PRN (08:55)
[2024-01-26] MEDS ORDERED: HYDROmorphone 0.5 MG/0.5 ML SYRINGE IVP PRN (08:55)
[2024-01-26] MEDS ORDERED: bisacodyL 10 MG SUPP RECTAL PRN (08:55)
[2024-01-26] MEDS ORDERED: ONDANSETRON 4 MG/2 ML VIAL IVP PRN (08:55)
[2024-01-26] MEDS ORDERED: NA PHOS,M-B/NA PHOS,DI-BA 133 ML ENEMA RECTAL PRN (08:55)
--- NOTE | 2024-01-26 09:02 | P.ANPRN ---
Procedure Note - Anesthesia - Nerve Block Performed Left [place] Single Time Out Performed: Yes Date of Procedure: 01/26/24 Procedure Start Time: 08:37 Procedure Stop Time: 08:42 Location of Patient: PreOp Indication: Acute Post-Operative Pain, Analgesia, Requested by Surgeon Sedation Type: Sedate with meaningful contact maintained Preparation: Sterile Prep Position: Right Lateral Catheter: None Needle Types: Pajunk Needle Gauge: 21 Ultrasound used to visualize needle placement: Yes Ultrasound used to observe medication spread: Yes Injectate: 0.5% Ropivacaine (see comment for volume) (Ropiv 20ml+[id number]) Blood Aspirated: No Pain Paresthesia on Injection Noted: No Resistance on Injection: Normal Image Stored and Saved: Yes Events: Uneventful and Well Tolerated
--- NOTE | 2024-01-26 09:04 | P.ANPRN ---
Procedure Note - Anesthesia - Nerve Block Performed Left Adductor Canal Infusion Time Out Performed: Yes Date of Procedure: 01/26/24 Procedure Start Time: 08:42 Procedure Stop Time: 08:47 Location of Patient: PreOp Indication: Acute Post-Operative Pain, Analgesia, Requested by Surgeon Sedation Type: Sedate with meaningful contact maintained Preparation: Sterile Prep Position: Supine Catheter: Indwelling Needle Types: On-Q Ultrasound used to visualize needle placement: Yes Ultrasound used to observe medication spread: Yes Injectate: 0.5% Ropivacaine (see comment for volume) (Ropiv 20ml+Decadron 4mg) Blood Aspirated: No Pain Paresthesia on Injection Noted: No Resistance on Injection: Normal Image Stored and Saved: Yes Events: Uneventful and Well Tolerated
[2024-01-26] MEDS: ceFAZolin 1,000 MG in SODIUM CHLORIDE 0.9% 1,000 ML IRRIGATION ONE (09:37)
--- NOTE | 2024-01-26 10:19 | P.OP ---
Date of Procedure: 01/26/24 Preoperative Diagnosis: Severe osteoarthritis left knee Postoperative Diagnosis: Severe osteoarthritis left knee Procedure(s) Performed: Left total knee arthroplasty Implants: [employer]hew Journey II CR Oxinium cruciate retaining femoral component size 6, left [employer] Journey nonporous tibial baseplate size 4, left [employer] Journey II, XLPE Deep Dished articular insert, size 9 mm, Size 3- 4, left [employer] Journey Reva II resurfacing patellar component, oval, 32 mm All components were cemented using Palacos R bone cement The articulation is Oxinium on polyethylene Anesthesia: JAMMIE Surgeon: John Mcdonald Lawyers #1: Jeanette Gooden Estimated Blood Loss (ml): 50 Pathology: none sent Condition: stable Disposition: PACU Indications for Procedure: The patient's knee is end-stage, and conservative management has failed. The operation of knee replacement has been discussed at length in the office, as well as potential risks and complications. These are inclusive of, but not limited to: Infection, bleeding, scarring, discomfort, stiffness, blood vessel and nerve damage, need for further surgery, failure to relieve symptoms, persistence, recurrence, or worsening of problems, loosening, dislocation, wear, blood clot, pulmonary embolism, , gait dysfunction, stiffness, and other risks as discussed in the office. Patient elects to proceed and the consent form has been signed. Operative Findings: The operative findings are consistent with severe osteoarthritis of the left knee Description of Procedure: The patient was seen in the preoperative area, the consent was reviewed and the operative site was marked with a skin marker. The patient verified the procedure and the operative site. An adductor canal pain catheter and an iPACK block were placed by anesthesia in the preoperative area. The patient was then brought to the operating room and positioned on the operating room table in the supine position. Preoperative antibiotics and a gram of tranexamic acid were given intravenously. A general anesthetic was administered by the anesthesia department. Care was taken to make sure that all pressure points were adequately padded. A tourniquet was placed on the upper thigh and the lower extremity was prepped with ChloraPrep and draped in usual sterile fashion. A universal time-out was then performed which confirmed the patient's name, surgical site, ALLERGIES, and consent. The lower extremity was then exsanguinated and tourniquet was inflated to 250 mmHg. A standard anterior midline approach to the knee was performed. The skin and subcutaneous tissue were sharply dissected down to the patellar tendon. A medial parapatellar arthrotomy was then performed. The knee was then extended, the patellar was everted, and the knee was flexed. The infra-patellar fat pad was removed in order to enhance exposure. The anterior horns of both menisci were excised, and a release was performed to the posterior medial aspect of the knee. On gross visual inspection, there was complete loss of articular cartilage in the medial and patellofemoral joint spaces. There was also significant cartilage damage in the lateral compartment. There were multiple periarticular osteophytes globally about the knee which were then removed with a Ronguer. The femoral canal was then opened with the 9.5 mm intramedullary drill. The 8 mm intramedullary yina was then inserted into the femoral canal with the distal femoral cutting guide set for 5 of valgus. The distal femoral cutting block was then pinned in place. The intramedullary yina was then removed, and the distal femur was then cut. The cutting block was then removed and the cut was checked for symmetry. The resected bone was then measured to confirm the appropriate distal femoral resection. Next, the sizing guide was then placed and set for 3 external rotation based off of the epicondylar axis and Creola's line. Pins were then placed and the drill holes, and the femur was sized with the sizing stylus. The pins were then removed, and the sizing guide was then removed. The spikes of the appropriate size femoral block was then placed into the predrilled holes, and malleted into place. Two 45 mm pins were then placed into the fixation holes on the cutting block. An awrren wing was then used to ensure there would be no notching with the anterior cut. The anterior condyles were cut without notching. The anterior chord cut was then performed, followed by the posterior cut, posterior chamfer cut, and the anterior chamfer cut. The collateral ligaments were protected during the entire process. The cutting block was then removed. Any remaining bone and osteophytes were removed from the femur with a Ronguer. Attention was then directed to the tibia. The remaining ACL was removed with a Ronguer, and the tibia was then gently subluxed forward with a large bent knee retractor. Any remaining menisci were excised. The posterior lateral corner was cauterized in order to coagulate the lateral geniculate artery. The extra medullary tibial cutting guide was then placed, set for the appropriate rotation, slope, and depth of resection. The proximal tibia cutting guide was then pinned in place. Proximal tibia was then cut and sized. A curved osteotome was then used to remove any posterior osteophytes from the distal femur. The femoral trial was placed. A narrow saw blade was then used to remove the anterior intracondylar femoral bone. The CR notch trial was then placed. The tibial trial was placed with the appropriate-sized insert. The knee was able to fully extend and flex to 130 and was stable throughout all range of motion. The knee was then extended and the patella was everted. Patella was then measured, and then using an osteotomy guide, the patella was cut at the appropriate level. The patellar component was sized. The patellar drill guide was placed and the patella was drilled. The patella trial was then placed. The knee was then taken through range of motion with the patella trial and the patella tracked normally using the no thumbs technique. The patella trial was then removed. The knee was then flexed and lug holes were drilled through the femoral trial and the femoral trial was then removed. The tibial was then re- exposed, and the tibial broach guide was then pinned in place after it was set for the appropriate rotation to allow for the most coverage without overhang. The tibia was then reamed and broached. The femoral canal was plugged with autologous bone. The cut surfaces of bone were then irrigated with pulsatile lavage. The knee was also irrigated with Irrisept solution. The components were then opened, the cement was mixed. Cement was placed on the backside of the femoral, tibial, and patellar components. Cement was then applied to the tibial surface and pressurized into the surface using finger pressurization technique. The tibial component was then applied and excess cement was removed after it was impacted securely noted to be flush with the cut surface. In similar fashion, the cement was applied to the cut femoral surface, pressuriz ed and using finger pressurization the component was impacted in place. Excess cement was removed. The polyethylene spacer was then implanted and locked into position. Patellar component was then applied in a similar technique and the patellar clamp was used to hold patella in place while the cement hardened. The knee was held in full extension while the cement hardened. Once the cement had fully hardened, the knee was reinspected. Any other cement extrusion was removed the final range of motion testing showed range of motion from 0-130 with excellent stability, both medial and laterally and appropriate alignment of the leg. Patella tracked normally. After the cemented hardened, the tourniquet was released and hemostasis was obtained. A second gram of transexamic acid was given intravenously. The knee was again irrigated. The knee was again taken through range of motion and found to be stable throughout all range of motion of 0-130, and the patella tracked normally. The fascia was then closed with 0 Vicryl followed by #2 strata fix suture. The subcutaneous tissue was closed with 3-0 Vicryl and 3-0 strata fix. Exofin glue was used for the skin and placed with the knee in flexion. After the glue had dried, and Optafoam silver impregnated dressing was applied. A lightly compressive dressing was applied using web roll and Pro wrap. Patient was then transferred to the stretcher and taken to recovery room in stable condition. Sponge and needle counts were correct. The program assistant DAVID Bauer was required due the complexity surgery and the need for a skilled director medical surgical. She assisted in positioning, draping, retraction, and closure of the wound.
[2024-01-26] MEDS: LACTATED RINGERS 1,000 ML IV ONE (10:34)
[2024-01-26] MEDS: ROPIVACAINE 1,100 MG, SODIUM CHLORIDE 0.9% 500 ML 330 ML, EMPTY PAIN BALL 1 EACH MISCELLANE PRN (11:27)
[2024-01-26] MEDS: HYDROmorphone 0.5 MG/0.5 ML SYRINGE IVP PRN (11:28)
--- NOTE | 2024-01-26 11:42 | XR ---
EXAMINATION TYPE: XR knee limited LT DATE OF EXAM: 01/26/2024 11:24 AM COMPARISON: None. CLINICAL INDICATION: Female, 53 years old with history of Evaluation for Postop abnormality and align ment, TECHNIQUE: XR knee limited LT view(s) obtained. FINDINGS: No acute fracture or dislocation evident. Femoral and tibial components of the place. Postsurgical so ft tissue changes are present IMPRESSION: 1. No acute osseous abnormality post left [facility], , 01/26/2024 11:39 AM
[2024-01-26] MEDS: SODIUM CHLORIDE 0.9% 1,000 ML IV SCH (12:49)
[2024-01-26] MEDS: HYDROcodone/APAP 7.5-325MG 1 EACH TAB PO PRN (12:51)
[2024-01-26] MEDS ORDERED: LORazepam 0.5 MG TAB PO PRN (16:15)
[2024-01-26] MEDS ORDERED: DEXTROSE 50% SYRINGE 50 ML IVP PRN ×2 (16:16)
--- NOTE | 2024-01-26 16:17 | P.CONS ---
History of Present Illness - Reason for Consult Consult date: 01/26/24 - History of Present Illness 53 year old F with PMH of CAD with stent, h/o gastric bypass, h/o bleeding gastric ulcer, anxiety presents to [facility] for elective [facility]. She underwent left total knee arthroplasty with Dr. Mcdonald. [facility] consulted for medical management of this patient. She reports no pain in her R knee. Ambulating since surgery. Able to urinate. No bowel movement but passing gas. No other complaints. Vital signs BP 100/63, HR 83, T 98.2F, RR 17, 97% on RA. POC glucose 97 since admission. General: no distress, appears at stated age Derm: warm, dry Head: atraumatic, normocephalic, symmetric Eyes: EOMI, no lid lag, anicteric sclera Mouth: no lip lesion, mucus membranes moist Cardiovascular: S1S2 reg, no murmur Lungs: CTA BS bilateral, no rhonchi, no rales , no accessory muscle use Ext: no gross muscle atrophy, no edema, no contractures Neuro: no focal neuro deficits Psych: Alert and oriented x 3 POD 0 L total knee arthroplasty managed by Orthopedic surgery. CAD with stent: ASA 81 mg PO BID. Plavix 75 mg PO QD. Metoprolol 25 mg PO QD. h/o bleeding gastric ulcer: Protonix 40 mg PO BID. Diabetes mellitus: ISS. Accuchecks ACHS. Hypoglycemic precautions. Anxiety: Sertraline 150 mg PO QHS. Ativan 0.5 mg PO BID PRN. h/o gastric bypass CODE STATUS: FULL CODE DVT Prophylaxis: ASA BID GI Prophylaxis: Protonix. Designated medical POA if patient is not able to make medical decisions for themselves: I have reviewed the following consultant in ergonomics and safety notes: Surgical note. I have reviewed the results of the following tests: As above. I have ordered the following tests: As above. I have discussed the care of this patient with the following independent historian: KARTHIK. I have independently interpreted the following test below: I have discussed the management of this patient with the following physician: Past Medical History Past Medical History: Coronary Artery Disease (CAD), Diabetes Mellitus, GERD/Reflux, GI Bleed, Osteoarthritis (OA) Additional Past Medical History / Comment(s): BLEEDING ULCERS,KIDNEY STONES History of Any Multi-Drug Resistant Organisms: None Reported Past Surgical History: Bariatric Surgery, Cholecystectomy, Heart Catheterization, Heart Catheterization With Stent, Hysterectomy, Orthopedic Surgery, Tonsillectomy Additional Past Surgical History / Comment(s): CARDIAC STENT,KNEE SURGERY,BYPASS GASTRIC Past Anesthesia/Blood Transfusion Reactions: No Reported Reaction Date of Last Stent Placement:: 01/11 Smoking Status: Never smoker - Past Family History Father Family Medical History: Cancer, Coronary Artery Disease (CAD) Additional Family Medical History / Comment(s): prostate Brother(s) Family Medical History: Coronary Artery Disease (CAD) Medications and Allergies Home Medications Medication Instructions Recorded Confirmed Type Clopidogrel [Plavix] 75 mg PO DAILY 05/03/21 01/26/24 History LORazepam 0.5 mg PO BID PRN 05/03/21 01/26/24 History Metoprolol Succinate [Toprol XL] 25 mg PO DAILY 05/03/21 01/26/24 History Nitroglycerin Sl Tabs [Nitrostat] 0.4 mg SUBLINGUAL ONCE PRN 05/03/21 01/26/24 History Ondansetron [Zofran] 4 mg PO Q8HR PRN 05/03/21 01/26/24 History Sertraline HCl 150 mg PO HS 05/03/21 01/26/24 History Cholestyramine (with Sugar) 4 gm PO BID PRN 09/18/23 01/26/24 History [Questran] Cyclobenzaprine [Flexeril] 5 mg PO Q8H PRN 09/18/23 01/26/24 History Dulaglutide [Trulicity] 3 mg SQ SA 09/18/23 01/26/24 History Ipratropium [place] [Ipratropium 1 spray NASAL DAILY 09/18/23 01/26/24 History [place] 0.03%] Loratadine [Claritin] 10 mg PO DAILY 09/18/23 01/26/24 History Multivitamins, Thera [Multivitamin 1 tab PO DAILY 09/18/23 01/26/24 History (formulary)] Pantoprazole [Protonix] 40 mg PO BID 09/18/23 01/26/24 History traMADol HCL 50 mg PO Q6H PRN 09/18/23 01/26/24 History Aspirin [Adult Low Dose Aspirin EC] 81 mg PO BID 30 Days #60 tab 09/22/23 01/26/24 Rx Aspirin 81 mg PO BID 30 Days #60 tab 01/26/24 Rx HYDROcodone/APAP 7.5-325MG [[place] 1 - 2 tab PO Q6H PRN #32 tab 01/26/24 Rx 7.5-325] Sennosides [Senokot] 2 tab PO DAILY PRN #60 tablet 01/26/24 Rx Allergies Allergy/AdvReac Type Severity Reaction Status Date / Time cefaclor [From Ceclor] Allergy Rash/Hives Verified 01/26/24 07:53 pioglitazone [From Actos] Allergy Rash/Hives Verified 01/26/24 07:53 rosiglitazone [From Avandia] Allergy Rash/Hives Verified 01/26/24 07:53 tirzepatide [From Mounjaro] Allergy Rash/Hives Verified 01/26/24 07:53 coffee (Coffea arabica) AdvReac Unknown Verified 01/26/24 07:53 sucralose AdvReac Unknown Verified 01/26/24 07:53 [From Splenda (sucralose)] Physical Exam Vitals: Vital Signs Temp Pulse Resp BP Pulse Ox 01/26/24 13:46 83 100/63 01/26/24 13:31 89 114/71 01/26/24 13:16 89 117/76 01/26/24 13:01 98 136/73 01/26/24 12:45 98.2 F 90 17 127/71 97 01/26/24 12:36 98.2 F 90 17 127/71 97 01/26/24 12:15 88 16 133/65 98 01/26/24 12:00 91 16 142/67 98 01/26/24 11:45 89 18 144/69 99 01/26/24 11:30 84 20 136/66 99 01/26/24 11:15 81 18 151/79 99 01/26/24 11:00 86 18 142/70 100 01/26/24 10:58 98.1 F 92 20 148/75 99 01/26/24 08:59 66 18 162/79 100 01/26/24 08:01 97.3 F L 71 16 150/79 98 Intake and Output 01/26/24 01/26/24 01/26/24 06:59 14:59 22:59 Intake Total 1351 Output Total 50 Balance 1301 Intake: IV 1351 Output: Estimated Blood Loss 50 Other: Weight 90.3 kg
[2024-01-26 16:50] LABS: Glucose,Whole Blood 219 mg/dL (70-110)
[2024-01-26] MEDS: INSULIN ASPART (NovoLOG) 100 UNIT/ML VIAL SQ SCH (17:00)
[2024-01-26] MEDS: PANTOPRAZOLE 40 MG TABLET PO SCH (17:01)
[2024-01-26 20:40] LABS: Glucose,Whole Blood 251 mg/dL (70-110)
[2024-01-26] MEDS: SERTRALINE 50 MG TAB PO SCH (21:24)
[2024-01-26] MEDS: ASPIRIN 81 MG PO SCH (21:25)
[2024-01-26] MEDS: SENNOSIDES-DOCUSATE SODIUM 1 EACH TAB PO SCH (21:25)
[2024-01-27] MEDS: HYDROcodone/APAP 7.5-325MG 1 EACH TAB PO PRN (00:06)
[2024-01-27 06:44] LABS: Glucose,Whole Blood 125 mg/dL (70-110)
[2024-01-27] MEDS: HYDROmorphone 0.5 MG/0.5 ML SYRINGE IVP PRN (06:54)
--- NOTE | 2024-01-27 07:14 | P.PN ---
Progress Note - Text Progress Note Date: 01/27/24 Postoperative day # 1 status post total knee arthroplasty, on adductor canal perineural catheter placed for postoperative analgesia. Ropivacaine 0.2% 8 mL per hour through ON-Q pump continuous infusion. pain was bad last night, better this morning after a PO medication. On visual analog scale 4/10 Patient is taking PRN oral pain medications. Catheter site: Looks Ok. There is no erythema or tenderness. Continue with the current pain management plan and will follow.
[2024-01-27 07:18] VITALS: BP 149/86; PULSE 73; RESP 17; TEMP 98
[2024-01-27 08:39] LABS: Basophils # (A) 0.03 X 10*3/uL (0.00-0.10); Basophils % (A) 0.3 %; Eosinophils # (A) 0.01 X 10*3/uL (0.04-0.35); Eosinophils % (A) 0.1 %; HCT 30.8 % (37.2-46.3); HGB 9.6 g/dL (12.0-15.0); Lymphocytes # (A) 0.85 X 10*3/uL (0.90-5.00); Lymphocytes % (A) 8.1 %; MCH 27.4 pg (27.0-32.0); MCHC 31.2 g/dL (32.0-37.0); MCV 87.7 FL (80.0-97.0); Mean Platelet Volume 10.3 FL (9.5-12.2); Monocytes # (A) 0.96 X 10*3/uL (0.20-1.00); Monocytes % (A) 9.1 %; NRBC Per 100 WBC 0 X 10*3/uL (0.00-0.01); Neutrophils # (A) 8.63 X 10*3/uL (1.80-7.70); Neutrophils % (A) 81.9 %; Platelet Count 182 X 10*3/uL (140-440); RBC 3.51 X 10*6/uL (4.10-5.20); RDW 15.1 % (11.5-14.5); WBC 10.53 X 10*3/uL (4.50-10.00)
[2024-01-27] MEDS: CLOPIDOGREL 75 MG TAB PO SCH (09:00)
[2024-01-27] MEDS: METOPROLOL SUCCINATE (ER) 25 MG TAB.ER.24H PO SCH (09:00)
--- NOTE | 2024-01-27 09:04 | P.DS ---
Providers Expected date of discharge: 01/27/24 Attending physician: John Mcdonald Consults: 01/26/24 08:55 Consult Physician Routine Consulting Provider: Sriram Ruelas Consult Reason/Comments: medical management Do you want consulting provider notified?: Yes Primary care physician: Lily Lind, NPC - Discharge Diagnosis(es) (1) Osteoarthritis of left knee Current Visit: Yes Status: Acute (2) S/P total knee arthroplasty Current Visit: Yes Status: Acute Hospital Course: This is a 53-year-old female with known history of degenerative arthritis of the left knee. The patient presented for evaluation as an outpatient. After discussion and consideration patient elects to proceed with total knee arthroplasty. The patient is seen preoperatively by Dr. Mcdonald and medically cleared for surgery by their primary care physician. Patient is admitted to [facility] on 01/26/2024 for total knee arthroplasty. The procedure is performed without complication or sequelae. The patient is doing well postoperatively. Labs and vital signs are stable on day of discharge. On day of discharge patient's knee incision is healing well. There is minimal erythema. There is no drainage noted at this time. There is minimal soft tissue swelling to the knee. Patient has full foot and ankle motion without difficulty or pain. Calf is soft and nontender to palpation. Neurovascular status to the left lower extremity is intact. Patient is discharged home in good condition. Please see med rec for accurate list of home medications. Plan - Discharge Summary Discharge Rx Participant: Yes New Discharge Prescriptions: New HYDROcodone/APAP 7.5-325MG [[place] 7.5-325] 1 - 2 tab PO Q6H PRN #32 tab PRN Reason: Pain Aspirin 81 mg PO BID 30 Days #60 tab Cyclobenzaprine [Flexeril] 10 mg PO TID PRN #21 tab PRN Reason: Muscle Spasm Sennosides [Senokot] 2 tab PO DAILY PRN #60 tablet PRN Reason: Constipation No Action Ondansetron [Zofran] 4 mg PO Q8HR PRN PRN Reason: Nausea Metoprolol Succinate [Toprol XL] 25 mg PO DAILY LORazepam 0.5 mg PO BID PRN PRN Reason: Anxiety Clopidogrel [Plavix] 75 mg PO DAILY Cyclobenzaprine [Flexeril] 5 mg PO Q8H PRN PRN Reason: Muscle Spasm Cholestyramine (with Sugar) [Questran] 4 gm PO BID PRN PRN Reason: digestion Ipratropium [place] [Ipratropium [place] 0.03%] 1 spray NASAL DAILY Dulaglutide [Trulicity] 3 mg SQ SA Sertraline HCl 150 mg PO HS Nitroglycerin Sl Tabs [Nitrostat] 0.4 mg SUBLINGUAL ONCE PRN PRN Reason: Chest Pain Pantoprazole [Protonix] 40 mg PO BID Loratadine [Claritin] 10 mg PO DAILY traMADol HCL 50 mg PO Q6H PRN PRN Reason: Pain Multivitamins, Thera [Multivitamin (formulary)] 1 tab PO DAILY Aspirin [Adult Low Dose Aspirin EC] 81 mg PO BID 30 Days #60 tab Discharge Medication List Clopidogrel [Plavix] 75 mg PO DAILY 05/03/21 [History] LORazepam 0.5 mg PO BID PRN 05/03/21 [History] Metoprolol Succinate [Toprol XL] 25 mg PO DAILY 05/03/21 [History] Nitroglycerin Sl Tabs [Nitrostat] 0.4 mg SUBLINGUAL ONCE PRN 05/03/21 [History] Ondansetron [Zofran] 4 mg PO Q8HR PRN 05/03/21 [History] Sertraline HCl 150 mg PO HS 05/03/21 [History] Cholestyramine (with Sugar) [Questran] 4 gm PO BID PRN 09/18/23 [History] Cyclobenzaprine [Flexeril] 5 mg PO Q8H PRN 09/18/23 [History] Dulaglutide [Trulicity] 3 mg SQ SA 09/18/23 [History] Ipratropium [place] [Ipratropium [place] 0.03%] 1 spray NASAL DAILY 09/18/23 [History] Loratadine [Claritin] 10 mg PO DAILY 09/18/23 [History] Multivitamins, Thera [Multivitamin (formulary)] 1 tab PO DAILY 09/18/23 [History] Pantoprazole [Protonix] 40 mg PO BID 09/18/23 [History] traMADol HCL 50 mg PO Q6H PRN 09/18/23 [History] Aspirin [Adult Low Dose Aspirin EC] 81 mg PO BID 30 Days #60 tab 09/22/23 [Rx] Aspirin 81 mg PO BID 30 Days #60 tab 01/26/24 [Rx] HYDROcodone/APAP 7.5-325MG [[place] 7.5-325] 1 - 2 tab PO Q6H PRN #32 tab 01/26/24 [Rx] Sennosides [Senokot] 2 tab PO DAILY PRN #60 tablet 01/26/24 [Rx] Cyclobenzaprine [Flexeril] 10 mg PO TID PRN #21 tab 01/27/24 [Rx] Follow up Appointment(s)/Referral(s): John Mcdonald DO [Doctor of Osteopathic Medicine] - 2 Weeks Activity/Diet/Wound Care/Special Instructions: Weightbearing as tolerated with a walker. CPM 5-6h daily as tolerated. Leave dressing intact. Dressing may be removed by home care nurse or by patient in 7 days. Then change dressing twice daily until follow up. May shower with initial dressing intact and after removal. If dressing become saturated, please remove. Recommend use of compression stockings daily until follow up to help prevent swelling and blood clots. May remove at night before sleeping. Please resume Plavix and take aspirin 81mg twice daily for 30 days to prevent blood clots. Please follow up with [facility] and call with any questions or concerns, . Discharge Disposition: HOME WITH HOME HEALTH SERVICES
[2024-01-27] MEDS: CYCLOBENZAPRINE 10 MG TAB PO PRN (11:01)
[2024-01-27 11:34] LABS: Glucose,Whole Blood 132 mg/dL (70-110)
--- NOTE | 2024-01-27 12:05 | P.PN ---
Subjective Progress Note Date: 01/27/24 53 year old F with PMH of CAD with stent, h/o gastric bypass, h/o bleeding gastric ulcer, anxiety presents [facility] for [facility]. She underwent left total knee arthroplasty with Dr. Mcdonald. [facility] consulted for medical management of this patient. 01/26 Patient was seen and examined. No complaints. CBC WBC 10.53, RBC 3.51, Hg 9.6, Hct 30.8. Advised repeat CBC in 3 days to be followed up with PCP. General: no distress, appears at stated age Derm: warm, dry Head: atraumatic, normocephalic, symmetric Eyes: EOMI, no lid lag, anicteric sclera Mouth: no lip lesion, mucus membranes moist Cardiovascular: good distal perfusion in all 4 extremities Lungs: breathing comfortably, no accessory muscle use Ext: no gross muscle atrophy, no edema, no contractures Neuro: no focal neuro deficits Psych: Alert and oriented x 3 POD 1 L total knee arthroplasty managed by Orthopedic surgery. Acute blood loss anemia: Recommended repeat CBC in 3 days to be followed up with PCP. CAD with stent: ASA 81 mg PO BID. Plavix 75 mg PO QD. Metoprolol 25 mg PO QD. h/o bleeding gastric ulcer: Protonix 40 mg PO BID. Diabetes mellitus: ISS. Accuchecks ACHS. Hypoglycemic precautions. Anxiety: Sertraline 150 mg PO QHS. Ativan 0.5 mg PO BID PRN. h/o gastric bypass CODE STATUS: FULL CODE DVT Prophylaxis: ASA BID GI Prophylaxis: Protonix. Designated medical POA if patient is not able to make medical decisions for themselves: I have reviewed the following device sales consultant notes: Surgical note. I have reviewed the results of the following tests: CBC I have ordered the following tests: I have discussed the care of this patient with the following independent historian: RN I have independently interpreted the following test below: I have discussed the management of this patient with the following physician: Objective - Vital Signs Vital signs: Vital Signs Temp 98.0 F 01/27/24 06:54 Pulse 73 01/27/24 06:54 Resp 17 01/27/24 06:54 BP 149/86 01/27/24 06:54 Pulse Ox 100 01/27/24 06:54 FiO2 Intake & Output 01/26/24 01/27/24 01/27/24 18:59 06:59 18:59 Intake Total 1351 540 Output Total 50 Balance 1301 540 Weight 90.3 kg Intake: IV 1351 Oral 540 Output: Estimated Blood Loss 50 Other: # Voids 1 2 - Labs CBC & Chem 7: 01/27/24 03:05 Labs: Abnormal Lab Results - Last 24 Hours (Table) 01/26/24 01/26/24 01/27/24 Range/Units 16:49 20:38 03:05 WBC 10.53 H (4.50-10.00) X 10*3/uL RBC 3.51 L (4.10-5.20) X 10*6/uL Hgb 9.6 L (12.0-15.0) g/dL Hct 30.8 L (37.2-46.3) % MCHC 31.2 L (32.0-37.0) g/dL RDW 15.1 H (11.5-14.5) % Immature Gran # 0.05 H (0.00-0.04) X 10*3/uL Neutrophils # 8.63 H (1.80-7.70) X 10*3/uL Lymphocytes # 0.85 L (0.90-5.00) X 10*3/uL Eosinophils # 0.01 L (0.04-0.35) X 10*3/uL POC Glucose (mg/dL) 219 H 251 H (70-110) mg/dL 01/27/24 Range/Units 06:42 WBC (4.50-10.00) X 10*3/uL RBC (4.10-5.20) X 10*6/uL Hgb (12.0-15.0) g/dL Hct (37.2-46.3) % MCHC (32.0-37.0) g/dL RDW (11.5-14.5) % Immature Gran # (0.00-0.04) X 10*3/uL Neutrophils # (1.80-7.70) X 10*3/uL Lymphocytes # (0.90-5.00) X 10*3/uL Eosinophils # (0.04-0.35) X 10*3/uL POC Glucose (mg/dL) 125 H (70-110) mg/dL
== END 2024-01-27 13:49 | disposition home health service (06) ==
LOC: OR 07:29 → 4SSUR 10:48 → OR 01-27 13:49
PROVIDERS: ATTEND Orthopaedic Surgery
DX: M17.12 Unilateral primary osteoarthritis, left knee (principal); E11.9 Type 2 diabetes mellitus without complications; Z47.1 Aftercare following joint replacement surgery; Z96.651 Presence of right artificial knee joint
CPT/HCPCS: 97161; 64999; 64448; 85025; 73560; 27447; C1713; C1776; C1751; J2250; J1100; J0690 ×3; J2405; J2795; J1171 ×2

== ENCOUNTER → 2024-02-05 | Outpatient (CLI) | payer OTHER ==
[2024-02-06 02:16] LABS: Basophils # (A) 0.05 X 10*3/uL (0.00-0.10); Basophils % (A) 0.6 %; Eosinophils # (A) 0.43 X 10*3/uL (0.04-0.35); Eosinophils % (A) 5.4 %; HCT 37.1 % (37.2-46.3); HGB 11.5 g/dL (12.0-15.0); Lymphocytes % (A) 11.3 %; MCH 27.2 pg (27.0-32.0); MCV 87.7 FL (80.0-97.0); Mean Platelet Volume 9.8 FL (9.5-12.2); Monocytes # (A) 0.75 X 10*3/uL (0.20-1.00); Monocytes % (A) 9.4 %; NRBC Per 100 WBC 0 X 10*3/uL (0.00-0.01); Neutrophils # (A) 5.76 X 10*3/uL (1.80-7.70); Neutrophils % (A) 72.4 %; Platelet Count 350 X 10*3/uL (140-440); RBC 4.23 X 10*6/uL (4.10-5.20); RDW 13.6 % (11.5-14.5); WBC 7.96 X 10*3/uL (4.50-10.00)
== END | disposition home or self-care (01) ==
LOC: LABWHC1 15:53
PROVIDERS: ATTEND Internal Medicine Gastroenterology
DX: D50.9 Iron deficiency anemia, unspecified (principal)
CPT/HCPCS: 36415; 85025

== ENCOUNTER → 2024-06-11 | Outpatient (CLI) | payer OTHER ==
[2024-06-12 02:07] LABS: Basophils # (A) 0.06 X 10*3/uL (0.00-0.10); Eosinophils # (A) 0.29 X 10*3/uL (0.04-0.35); Eosinophils % (A) 4.6 %; HCT 38.9 % (37.2-46.3); HGB 11.7 g/dL (12.0-15.0); Lymphocytes # (A) 0.94 X 10*3/uL (0.90-5.00); Lymphocytes % (A) 15.1 %; MCHC 30.1 g/dL (32.0-37.0); MCV 86.4 FL (80.0-97.0); Mean Platelet Volume 10.2 FL (9.5-12.2); Monocytes % (A) 9.6 %; NRBC Per 100 WBC 0 X 10*3/uL (0.00-0.01); Neutrophils # (A) 4.33 X 10*3/uL (1.80-7.70); Neutrophils % (A) 69.4 %; Platelet Count 227 X 10*3/uL (140-440); RDW 15.7 % (11.5-14.5); WBC 6.24 X 10*3/uL (4.50-10.00)
[2024-06-12 02:58] LABS: % Iron Saturation 13.37 (12.00-45.00); ALT 20 U/L (8-44); AST 27 U/L (13-35); Albumin 3.9 g/dL (3.8-4.9); Albumin/Globulin Ratio 1.62 Ratio (1.60-3.17); Alkaline Phosphatase 112 U/L (41-126); BUN/Creat Ratio 14.89 Ratio (12.00-20.00); Blood Urea Nitrogen 26.8 mg/dL (9.0-27.0); Calcium 8.9 mg/dL (8.7-10.3); Carbon Dioxide 24.1 mmol/L (21.6-31.8); Chloride 105 mmol/L (96-109); Ferritin 70.1 ng/mL (10.0-291.0); Globulin 2.4 g/dL (1.6-3.3); Glucose 102 mg/dL (70-110); Iron 50 UG/DL (50-170); Sodium 139 mmol/L (135-145); Total Bilirubin <0.2 mg/dL (0.3-1.2); Total Iron Binding Capacity 374 UG/DL (228-460); Total Protein 6.3 g/dL (6.2-8.2)
== END | disposition home or self-care (01) ==
LOC: LABWHC1 15:48
PROVIDERS: ATTEND Family Medicine
DX: D50.9 Iron deficiency anemia, unspecified (principal)
CPT/HCPCS: 36415; 80053; 82306; 82607; 82728; 83540; 83550; 85025

== ENCOUNTER → 2024-07-15 | Outpatient (CLI) | payer OTHER ==
--- NOTE | 2024-07-16 07:38 | MM ---
Reason for Exam: Screening (asymptomatic). Last mammogram was performed 1 year(s) and 5 month(s) ago. Patient History: Menarche at age 9. Patient has no children. Hysterectomy at age 45. Postmenopausal. Maternal aunt had breast cancer. Paternal aunt had endometrial cancer. Risk Values: Siobhan 5 year model risk: 1.4%. NCI Lifetime model risk: 10.1%. Prior Study Comparison: 08/24/2020 Bilateral MG 3D screening mammo w/cad, [facility] [place]. 01/03/2022 Bilateral MG 3D screening mammo w/cad, [facility]. 02/19/2023 Bilateral MG 3D screening mammo w/cad, [facility]. Tissue Density: There are scattered areas of fibroglandular density. Findings: Analyzed By CAD. There is no suspicious group of microcalcifications or new suspicious mass in either breast. Overall Assessment: Negative, BI-RAD 1 Management: Screening Mammogram of both breasts in 1 year. . Patient should continue monthly self-breast exams. A clinical breast exam by your physician is recommended on an annual basis. This exam should not preclude additional follow-up of suspicious palpable abnormalities. Note on Siobhan scores and lifetime risk: 1. A Siobhan score greater than 3% is considered moderate risk. If this is the case, consider specialist referral to assess eligibility for a risk reducing agent. 2. If overall lifetime risk for the development of breast cancer is 20% or higher, the patient may qualify for future screening with alternating mammogram and breast MRI. [facility], , 07/16/2024 7:35 AM. Electronically signed and approved by: Anurag Cordova M.D. Radiolog[facility]
== END | disposition home or self-care (01) ==
LOC: RADMAMWWP 15:58
PROVIDERS: ATTEND Family Medicine
DX: Z12.31 Encounter for screening mammogram for malignant neoplasm of breast (principal); R92.323 Mammographic fibroglandular density, bilateral breasts; Z78.0 Asymptomatic menopausal state; Z80.3 Family history of malignant neoplasm of breast
CPT/HCPCS: 77063; 77067